=== PATIENT | male | born 1960 | race Caucasian/White ===

== ENCOUNTER 2017-09-03 08:53 | Inpatient (IN) | payer BC ==
[2017-08-13 14:53] VITALS: BMI 53.0
--- NOTE | 2017-08-22 13:51 | PAT Medication Instructions ---
Service Date Aug 22, 2017. Current Home Medication List Fluticasone Propionate (Inhala (Flovent Diskus), 1 PUFFS INH BID PRN for Shortness of Breath Fluticasone Propionate (Nasal) (Flonase Allergy Relief), 2 SPRAYS NA QAM Lisinopril (Zestril), 2.5 MG PO QAM Metformin Hcl Er (Glucophage Er), 500 MG PO QAM Multiple Vitamins W/ Minerals (Centrum Silver 50+Men), 1 TAB PO QAM Sertraline (Zoloft), 100 MG PO QAM Medication Instructions For Your Scheduled Surgery - Hold the following medications the morning of surgery: Lisinopril (Zestril), 2.5 MG PO QAM Metformin Hcl Er (Glucophage Er), 500 MG PO QAM Multiple Vitamins W/ Minerals (Centrum Silver 50+Men), 1 TAB PO QAM - Take the following medications the morning of surgery with a sip of water: Sertraline (Zoloft), 100 MG PO QAM Fluticasone Propionate (Inhala (Flovent Diskus), 1 PUFFS INH BID PRN for Shortness of Breath (if needed) Fluticasone Propionate (Nasal) (Flonase Allergy Relief), 2 SPRAYS NA QAM - Take the following medications as scheduled the night before surgery: Fluticasone Propionate (Inhala (Flovent Diskus), 1 PUFFS INH BID PRN for Shortness of Breath (if needed) If you have any questions please call us at [phone] or [phone] or [phone]
--- NOTE | 2017-08-22 14:00 | HISTORY & PHYSICAL EXAMINATION ---
DATE OF ADMISSION: 09/03/2017 CHIEF COMPLAINT: Left knee pain. HISTORY OF PRESENT ILLNESS: Yaniv is a 57-year-old male with a 1-1/2 year history of left knee pain. The patient rates his pain at 8/10. He has pain with his daily activities. He has limited standing and walking tolerance. Pain is worse with weightbearing. The patient has had injections, anti-inflammatories over the years without relief. He has failed conservative treatment and is scheduled to proceed with elective left total knee arthroplasty. PAST MEDICAL HISTORY: Hypertension, morbid obesity. He denies heart disease, diabetes or DVT. PAST SURGICAL HISTORY: Bilateral lower extremity neuroma excision, left knee arthroscopy, ear tubes bilaterally and muscle repair at both elbows. SOCIAL HISTORY: The patient denies alcohol or tobacco use. He lives in a single story home. He lives alone and is retired. FAMILY HISTORY: Negative for DVT. MEDICATIONS: Zoloft 100 mg daily, metformin 500 mg, lisinopril 2.5 mg, fluticasone 50 mg. ALLERGIES: CIPRO CAUSES MAJOR ANXIETY. REVIEW OF SYSTEMS: See HPI. Ten other systems reviewed, all negative. PHYSICAL EXAMINATION: VITAL SIGNS: Height 5 foot 4 inches, weight 310 pounds, BMI 53. GENERAL: This is a well-developed, well-nourished, obese male who is alert and oriented x3. Mood and affect are appropriate. HEENT: Normocephalic, atraumatic. Mucous membranes are moist and intact. NECK: Supple without lymphadenopathy. HEART: Regular rate and rhythm without murmurs, rubs or gallops. LUNGS: Clear to auscultation without wheezes or rhonchi. ABDOMEN: Soft and nontender. Bowel sounds are equal and active. EXTREMITIES: No ecchymosis, redness or warmth. He has varus deformity. Range of motion is from 0-115 degrees with +1 laxity. He is neurovascularly intact with +5/5 strength. X-RAY EXAM: AP and lateral views show joint space narrowing and osteophyte formation. IMPRESSION: Degenerative joint disease, left knee. PLAN: The patient will be admitted for a left total knee arthroplasty. We will plan on aspirin for deep venous thrombosis prophylaxis. The patient would like to do outpatient physical therapy upon discharge.
--- NOTE | 2017-08-22 15:04 | DIAGNOSTIC IMAGING REPORT ---
CHEST 2 VIEWS ROUTINE CLINICAL HISTORY: Preoperative evaluation. COMPARISON STUDY: No previous studies for comparison. FINDINGS: Lung volumes are normal. No pneumothorax or pleural effusion is noted. There is no consolidation or evidence for pulmonary edema. Cardiac size is normal. Mediastinal contours are normal. IMPRESSION: No acute cardiopulmonary findings. Electronically signed by: Aniceto Manzanares M.D. 08/22/2017 3:03 PM Dictated Date/Time: 08/22/2017 2:51 PM
[2017-08-22 16:07] LABS: BASO % 0.6 %; BASO ABS # 0.08 K/uL (0-0.2); EOS % 5.5 %; EOS ABS # 0.68 K/uL (0-0.5); HEMATOCRIT 41.1 % (42-52); HEMOGLOBIN 13.7 g/dL (14.0-18.0); IG# 0.05 K/uL (0.00-0.02); LYMPH % 33.7 %; LYMPH ABS # 4.17 K/uL (1.2-3.4); MEAN CELL VOLUME 88.2 fL (80-100); MEAN CORPUSCULAR HEMOGLOBIN 29.4 pg (25-34); MEAN CORPUSCULAR HGB CONC 33.3 g/dl (32-36); MEAN PLATELET VOLUME 10.5 fL (7.4-10.4); MONO % 9.2 %; MONO ABS # 1.14 K/uL (0.11-0.59); NEUT % 50.6 %; NEUT ABS # 6.24 K/uL (1.4-6.5); PLATELET COUNT 242 K/uL (130-400); RED CELL DISTRIBUTION WIDTH CV 13.9 % (11.5-14.5); RED CELL DISTRIBUTION WIDTH SD 44.8 fL (36.4-46.3); WHITE BLOOD COUNT 12.36 K/uL (4.8-10.8)
[2017-09-03] VITALS (11 sets, daily range): BP systolic 93–165; BP diastolic 58–96; PULSE 73–106; TEMP 36.5–36.9; O2SAT 93–97; Ht 162.6 cm; Wt 140.9 kg
[~2017-09-03] VITALS: Ht 162.6 cm; Wt 140.9 kg
[~2017-09-03 08:53] MED LIST: ACETAMINOPHEN 500 MG TAB PO SCH; BUPIVACAINE 0.5 % 5 MG/1 ML PF 10ML VIAL ONE; CEFAZOLIN 3000MG IV PUSH 22.5 ML IV SCH; CeleBREX 200 MG CAP PO SCH; FLUT0.15; FLUT1AER5 INH; GABAPENTIN 600 MG PO SCH; LACTATED RINGER'S 1000ML 1,000 ML IV SCH; LACTATED RINGER'S 1000ML 500 ML IV SCH; LISI-789 PO; METF500T5 PO; MULT-1093 PO; ROPIVACAINE 0.5% 5 MG/ML 30 ML VIAL ONE; ROPIVACAINE 5MG/ML 30 ML 150 MG, BUPIVACAINE 0.5% MPF INJ 30 ML, EpINEphrine HCL INJ 0.... INFIL SCH; SERT-234 PO
--- NOTE | 2017-09-03 09:47 | History & Physical Bridge Note ---
H&P Re-Evaluation Bridge Note: I have examined the patient, reviewed the History & Physical and in the interval since the performance of the History & Physical I have noted the following changes of clinical significance: No changes noted
[2017-09-03] MEDS ORDERED: MIDAZOLAM HCL 1 MG/ML 2ML VIAL ONE ×3 (09:51→11:25)
[2017-09-03] MEDS ORDERED: POVIDONE-IODINE OP SOLN 30 ML BTL ONE (10:44)
[2017-09-03] MEDS ORDERED: BACITRACIN 50000 UNIT VIAL ONE (10:44)
[2017-09-03] MEDS ORDERED: ORTHO JOINT ANESTHETIC ONE (10:44)
[2017-09-03] MEDS: TRANEXAMIC ACID INJ 1,000 MG x 2 Bags IV SCH ×4 (10:48→14:31)
[2017-09-03] MEDS ORDERED: PROPOFOL IV EMULSION 10 MG/ML 20 ML VIAL ONE ×3 (11:38→12:15)
[2017-09-03] MEDS ORDERED: LIDOCAINE HCL 2% 2 ML VIAL (20MG/ML) ONE (11:38)
[2017-09-03] MEDS ORDERED: GLYCOPYRROLATE INJ 0.2 MG/ML VIAL ONE (11:51)
[2017-09-03] MEDS ORDERED: PHENYLEPHRINE 100MCG/ML 5ML SYR ONE (11:58)
[2017-09-03] MEDS ORDERED: PHENYLEPHRINE HCL INJ 10 MG/ML VIAL ONE (11:58)
[2017-09-03] MEDS ORDERED: EpHEDrine SULFATE 50MG/5ML SYR ONE (11:58)
--- NOTE | 2017-09-03 12:20 | [facility] Post Operative Brief Note ---
Immediate Operative Summary Operative Date Sep 03, 2017. Pre-Operative Diagnosis Left knee degenerative joint disease Post-Operative Diagnosis Left knee degenerative joint disease Procedure(s) Performed Utilizing [employer] non-block journey to total knee arthroplasty size 5 femur 4 tibia 9 Emy 32 oval patella left Total Knee Arthroplasty Surgeon Dr. Maximo Dukes Broadcast Director Operations Surgeon(s) Maximo Estrada PA-C Estimated Blood Loss 5mL Findings Consistent with Post-Op Diagnosis Specimens A: left knee bone & tissue Anesthesia Type MAC Spinal Regional Complication(s) none Disposition Disposition: Recovery Room / PACU Overlapping Procedure I was present for: the critical portions of procedure. I was immediately available: during the entire case Back up surgeon: was not required during procedure
--- NOTE | 2017-09-03 12:22 | [facility] Operative Report ---
Operative Report Operative Date Sep 03, 2017. Pre-Operative Diagnosis Left knee degenerative joint disease Post-Operative Diagnosis Left knee degenerative joint disease Procedure(s) Performed Utilizing [employer]NOW non-block journey to total knee arthroplasty size 5 femur 4 tibia 9 Emy 32 oval patella left Total Knee Arthroplasty Surgeon Dr. Maximo Dukes Rust Proofer Surgeon(s) Maximo Estrada PA-C Estimated Blood Loss 5mL Findings Patient was noted to have a severe end-stage DJD with findings consistent with eburnated bone medial compartment subchondral sclerosis marginal osteophytes cystic changes moderate to large effusion patellofemoral DJD with crepitation or pseudo-ligamentous laxity of both medial compartment from medial compartment articular cartilage and meniscal wear the clinical findings time surgery were consistent with radiographic findings patellofemoral narrow joint space osteophytes sclerosis and marginal osteophytes. Specimens A: left knee bone & tissue Anesthesia Type MAC Spinal Regional Complication(s) none Disposition Recovery Room / PACU Indications Patient presents for total knee arthroplasty after failing attempts at conservative management including corticosteroid injections viscous supplementations bracing activity modification attempted weight loss patient is a failed all attempts at conservative management presents for total knee arthroplasty the above findings were noted at the time of surgery including subchondral sclerosis cystic changes marginal osteophytes Description of Procedure After proper prepping and draping of the left lower extremity anterior midline incision was made over the region of the extensor extensor mechanism after meticulous hemostasis was obtained and maintained in subcutaneous tissues a medial parapatellar incision was made The patella was subluxed lateralward the medial lateral gutter were cleaned from any hypertrophic synovitis and scar tissue of the distal femoral block was placed and the distal femoral osteotomy cut was made subsequently the chamfers anterior and posterior osteotomy cuts were made utilizing the 4-in-1 block the tibia was subsequently subluxed anteriorward medial and ateral meniscal remnants were excised in their entirety remnants of the anterior and posterior cruciate ligaments were excised in their entirety excellent exposure of the proximal tibia was obtained the tibial osteotomy guide was placed on the proximal tibial osteotomy cut was made once again the knee was irrigated with copious amounts of sterile saline solution the patella was subsequently everted lateralward thickened scar tissue around the patella was removed the patella was subsequently cut utilizing a freehand technique and was drilled prepared for final preparation and placement of patella socially flexion-extension gaps were checked and the equal and symmetric trials were placed to the appropriate femoral and tibial trials with poly-spacer being placed for equal flexion and extension gaps and full range of motion including extension to 0 and flexion to 140 the trial components after having been taken to recovery range of motion was subsequently removed meticulous hemostasis was obtained and maintained subsequently a knee block injection of joint cocktail including ropivacaine 0.5% 150 mg. Bupivacaine 0.5 % epinephrine 1-200,030 mL's toradol 30 mg dexamethasone 4 mg ketamine 10 mg clonidine 100 micrograms normal saline solution 30 mg was infiltrated into the soft tissues of the posterior knee medial lateral gutters and periosteal synovium special attention was paid to protect neurovascular structures at all times subsequently trial components having been removed the knee was irrigated with sterile saline solution. debris was removed the proximal tibia was subsequently prepared and was made ready for the placement of the tibial component tibial component was also cemented and tamped into position the femoral component was subsequently placed and cemented in the position the patellar component was subsequently cemented in position because hemostasis once again obtained and maintained wound having been thoroughly irrigated with debridement and debridement lavage was performed as well as a medial parapatellar incision closed with #1 Vicryl in interrupted fashion subcutaneous was closed with #2 Vicryl skin was closed with skin clips. PA-C was necessary for prepping and drapping as well as wound closure of deep fascia Sub cutaneous tissue and skin and was necessary for the case. A sterile compressive dressing was placed patient was taken to recovery in stable condition of report dictated by Ernst I attest to the content of the Intraoperative Record and any orders documented therein. Any exceptions are noted below. I attest to the content of the Intraoperative Record and any orders documented therein. Any exceptions are noted below.
[2017-09-03] MEDS ORDERED: ALUMINUM/MAGNESIUM/SIMETH (MAALOX MAX) 30 ML UDC PO PRN (13:15)
[2017-09-03] MEDS ORDERED: ONDANSETRON INJ 2 MG/ML 2 ML VIAL IV PRN (13:15)
[2017-09-03] MEDS ORDERED: MAGNESIUM HYDROXIDE SUSP 30 ML UDC PO PRN (13:15)
[2017-09-03] MEDS ORDERED: BISACODYL 10 MG SUPP PR PRN (13:15)
[2017-09-03] MEDS ORDERED: TAMSULOSIN HCL 0.4 MG CAP PO PRN (13:15)
[2017-09-03] MEDS ORDERED: MoRPHine SULFATE 4 MG/ML 1 ML CARP\\VIAL IV PRN (13:15)
--- NOTE | 2017-09-03 13:52 | DIAGNOSTIC IMAGING REPORT ---
LEFT KNEE 2 VIEWS History: Left total knee arthroplasty. Degenerative arthritis. Postop. FINDINGS: The patient is status post a left total knee arthroplasty. The hardware is intact. No fracture or dislocation. Surgical drains are in place. IMPRESSION: Left total knee arthroplasty. No evidence for hardware complication. Electronically signed by: Bartolo Mckinney M.D. 09/03/2017 1:50 PM Dictated Date/Time: 09/03/2017 1:50 PM
[2017-09-03] MEDS ORDERED: PHARMACY GLYCEMIC MGMT CONSULT PRN (13:58)
--- NOTE | 2017-09-03 13:58 | Pharmacy Progress Note ---
Glycemic Control Intl Consult Date of Service Sep 03, 2017. Scope Glycemic Pharmacist consulted for glycemic control and to write orders per [facility] inpatient glycemic control protocol Objective Weight (Kilograms): 140.91 Accuchecks BSG (last 24hrs): Test 09/03/17 09:12 09/03/17 13:13 Bedside Glucose 166 mg/dl (70-99) 115 mg/dl (70-99) Recent Pertinent Medications Outpatient Anti-diabetic Regimen: * Metformin ER 500mg PO Daily Risk Factors for Insulin Resistance: * Steroids: {orthomix} * Recent Surgery * Diet Assessment & Plan ASSESSMENT: * 57yo T2DM male with unknown degree of outpatient glycemic control. Will order A1c per protocol * Pt is maintained on oral antidiabetic agents as an outpatient * Oral agents are not recommended for inpatient use d/t drug interactions, changing PO intake, and difficulty titrating for acute hyper/hypoglycemia. ADA recommends re-initiating outpatient oral agents 1-2 days prior to discharge if/ when appropriate if they were held on admission. * Will hold oral agents for admission and utilize SQ basal bolus insulin regimen which is the recommended regimen for inpatient glycemic control. * Will initiate weight based insulin dosing for insulin nahid patient and titrate based on BSG trends. * Will dose basal insulin based on a BSG scale as degree of outpatient control/ insulin resistance unknown * Goal is to maintain BSGs <200 mg/dl (ideally <150 mg/dl) to prevent post-op infectious complications PLAN FOR INPATIENT GLYCEMIC CONTROL: * Holding outpatient oral diabetes medications * Will resume POD#1 as long as pt tolerating PO and renal function WNL * Basal insulin * Lantus 13-35 units SQ BID - dose based on BSG * If BSG below 140mg/dl --> 13 units (~0.1 units/kg) * BSG 140-180mg/dl --> 24 units (~0.2 units/kg) * BSG above 180mg/dl --> 35 units (~0.25units/kg) * Bolus insulin * NovoLog per scale ACHS or Q6hrs while NPO * Goal Range: Low 110 mg/dL - High 140 mg/dL * Correction Factor: 15 mg/dL/unit * Nutritional / Prandial insulin per carb ratio of 1 unit per 6 grams CHO consumed * A1c with AM labs * Please note that the plan above was derived based on current level of insulin resistance and hospital stress. These recommendations are appropriate for inpatient admission only. Plan of care upon discharge will need to be reassessed to avoid potential outpatient hypo/hyperglycemia. Thank you.
[2017-09-03] MEDS ORDERED: CARBOHYDRATES FOR HYPOGLYCEMIA PO PRN (14:15)
[2017-09-03] MEDS ORDERED: GLUCOSE 40% GEL 15 GM TUBE PO PRN (14:15)
[2017-09-03] MEDS ORDERED: GLUCAGON FOR INJ 1 MG VIAL IM PRN (14:15)
[2017-09-03] MEDS ORDERED: DEXTROSE 50% 50 ML SYR IV PRN (14:15)
[2017-09-03] MEDS ORDERED: GLUCOSE 10 TABS/TUBE PO PRN (14:15)
[2017-09-03] MEDS: SODIUM CHLORIDE 0.9% 1000ML 1,000 ML IV SCH (14:32)
--- NOTE | 2017-09-03 14:42 | Anesthesiology Progress Note ---
Anesthesia Post Op Note Date & Time Sep 03, 2017 at 14:42 Vital Signs Pain Intensity: 0 Vital Signs Past 12 Hours Date Time Temp Pulse Resp B/P (MAP) Pulse Ox O2 Delivery O2 Flow Rate FiO2 09/03/17 14:20 36.5 80 18 113/58 (76) 96 Nasal Cannula 2.0 09/03/17 13:51 36.9 84 18 125/73 (90) 96 Nasal Cannula 3.0 09/03/17 13:50 97 Nasal Cannula 3.0 09/03/17 13:50 97 Nasal Cannula 2.0 09/03/17 13:40 37.3 78 18 117/75 98 Nasal Cannula 3 09/03/17 13:30 82 16 126/69 100 Nasal Cannula 3 09/03/17 13:20 86 16 116/67 100 Nasal Cannula 3 09/03/17 13:07 36.4 87 16 119/64 100 Oxymask 10 09/03/17 09:15 36.8 79 18 165/96 96 Room Air Notes Mental Status: alert / awake / arousable, participated in evaluation Pt Amnestic to Procedure: Yes Nausea / Vomiting: adequately controlled Pain: adequately controlled Airway Patency, RR, SpO2: stable & adequate BP & HR: stable & adequate Hydration State: stable & adequate Neuraxial Anesthesia: was administered, sensory block is resolving Anesthetic Complications: no major complications apparent
[2017-09-03] MEDS: ACETAMINOPHEN 500 MG TAB PO SCH ×2 (16:14→21:33)
[2017-09-03] MEDS: FERROUS GLUCONATE 324 MG TAB PO SCH (17:48)
[2017-09-03] MEDS: INSULIN ASPART 100 UNITS/ML 3 ML PEN SC SCH ×2 (18:31→21:45)
[2017-09-03] MEDS: INSULIN GLARGINE SOLOSTAR 100 UNITS/ML 3 ML PEN SC SCH (18:32)
[2017-09-03] MEDS: CeleBREX 200 MG CAP PO SCH (21:32)
[2017-09-03] MEDS: CEFAZOLIN IV 2,000 MG in SYRINGE 0 ML IV SCH (21:32)
[2017-09-03] MEDS: ASPIRIN 81 MG ECTAB PO SCH (21:32)
[2017-09-03] MEDS: SENNA 8.6 MG TAB PO SCH (21:32)
[2017-09-03] MEDS: DOCUSATE SODIUM 100 MG CAP PO SCH (21:33)
[2017-09-03] MEDS: TRAMADOL HCL 50 MG TAB PO PRN (23:57)
[2017-09-04] MEDS: SODIUM CHLORIDE 0.9% 1000ML 1,000 ML IV SCH ×2 (01:48→09:07)
[2017-09-04 03:45] VITALS: BP 136/74; PULSE 72; TEMP 36.4; O2SAT 96
[2017-09-04] MEDS: CEFAZOLIN IV 2,000 MG in SYRINGE 0 ML IV SCH (04:35)
[2017-09-04] MEDS: ACETAMINOPHEN 500 MG TAB PO SCH ×3 (06:23→21:39)
[2017-09-04] MEDS: TRAMADOL HCL 50 MG TAB PO PRN ×2 (06:26→23:06)
[2017-09-04 06:44] LABS: HEMOGLOBIN 12.6 g/dL (14.0-18.0); MEAN CELL VOLUME 87.9 fL (80-100); MEAN CORPUSCULAR HEMOGLOBIN 29.9 pg (25-34); MEAN CORPUSCULAR HGB CONC 34.1 g/dl (32-36); MEAN PLATELET VOLUME 9.7 fL (7.4-10.4); PLATELET COUNT 178 K/uL (130-400); RED CELL DISTRIBUTION WIDTH CV 13.7 % (11.5-14.5); RED CELL DISTRIBUTION WIDTH SD 43.9 fL (36.4-46.3); WHITE BLOOD COUNT 13.88 K/uL (4.8-10.8)
[2017-09-04 06:58] LABS: HEMOGLOBIN A1C 7.3 % (4.5-5.6)
[2017-09-04 07:11] LABS: CALCIUM 8.6 mg/dl (8.5-10.1); CREATININE 1.21 mg/dl (0.60-1.40); POTASSIUM 4.3 mmol/L (3.5-5.1)
--- NOTE | 2017-09-04 08:01 | Orthopedic Progress Note ---
Orthopedic Progress Note Date of Service Sep 04, 2017. Subjective Post OP Day: 1 Reports: feeling well, Denies: complaints Objective calves soft nontender, N/V intact, dressing C/D/I, A&O x3, toes mobile, hemovac drainage (200ml latest shift) Date Time Temp Pulse Resp B/P (MAP) Pulse Ox O2 Delivery O2 Flow Rate FiO2 09/04/17 03:45 36.4 72 16 136/74 (94) 96 Nasal Cannula 2.0 09/03/17 23:50 93 Room Air 2.0 09/03/17 23:22 36.9 87 17 108/70 (83) 93 Room Air 09/03/17 19:45 36.6 93 16 109/70 (83) 95 Nasal Cannula 2.0 09/03/17 16:49 76 18 115/73 (87) 94 Nasal Cannula 2.0 09/03/17 16:00 96 Nasal Cannula 2.0 09/03/17 15:50 106 20 106/76 (86) 96 Nasal Cannula 2.0 09/03/17 14:50 36.5 73 18 93/63 (73) 94 Nasal Cannula 2.0 09/03/17 14:20 36.5 80 18 113/58 (76) 96 Nasal Cannula 2.0 09/03/17 13:51 36.9 84 18 125/73 (90) 96 Nasal Cannula 3.0 09/03/17 13:50 97 Nasal Cannula 3.0 09/03/17 13:50 97 Nasal Cannula 2.0 09/03/17 13:40 37.3 78 18 117/75 98 Nasal Cannula 3 09/03/17 13:30 82 16 126/69 100 Nasal Cannula 3 09/03/17 13:20 86 16 116/67 100 Nasal Cannula 3 09/03/17 13:07 36.4 87 16 119/64 100 Oxymask 10 09/03/17 09:15 36.8 79 18 165/96 96 Room Air Laboratory Results 24 Hours: Test 09/04/17 06:17 Hematocrit 37.0 % Hemoglobin 12.6 g/dL Assessment & Plan Assessment: POD 1 s/p Left TKA Plan: PT/OT Planning for OPPT upon dc Inhouse Planning Pain Management: Celebrex, Ultram, Morphine, PO Tylenol, Oxy IR DVT Prophylaxis: TEDs, SCDs, ASA Discharge Planning Discharge Planning: home with oppt
[2017-09-04 08:02] VITALS: BP 146/76; PULSE 78; TEMP 36.5; O2SAT 95
[2017-09-04] MEDS: CeleBREX 200 MG CAP PO SCH ×2 (08:49→20:39)
[2017-09-04] MEDS: DOCUSATE SODIUM 100 MG CAP PO SCH ×2 (08:50→20:39)
[2017-09-04] MEDS: LISINOPRIL 2.5 MG TAB PO SCH (08:50)
[2017-09-04] MEDS: FLUTICASONE PROPIONATE NA SPR 16 GM BTL SCH (08:50)
[2017-09-04] MEDS: FERROUS GLUCONATE 324 MG TAB PO SCH ×3 (08:51→17:58)
[2017-09-04] MEDS: MULTIVITAMIN TAB PO SCH (08:51)
[2017-09-04] MEDS: SERTRALINE HCL 100 MG TAB PO SCH (08:51)
[2017-09-04] MEDS: ASPIRIN 81 MG ECTAB PO SCH ×2 (08:51→20:39)
[2017-09-04] MEDS: INSULIN ASPART 100 UNITS/ML 3 ML PEN SC SCH ×4 (08:55→20:44)
[2017-09-04] MEDS: INSULIN GLARGINE SOLOSTAR 100 UNITS/ML 3 ML PEN SC SCH ×2 (08:56→20:45)
[2017-09-04 10:32] VITALS: BP 129/73; PULSE 85; TEMP 36.6; O2SAT 94
--- NOTE | 2017-09-04 10:52 | Pharmacy Progress Note ---
Pharmacy Glycemic Short Note 2 Date of Service Sep 04, 2017. OUTPATIENT ANTIDIABETIC REGIMEN: * Metformin ER 500mg PO QAM * A1c = 7.3% on 09/04/17 Item Value Date Time Bedside Glucose 166 mg/dl H 09/03/17 0912 Bedside Glucose 115 mg/dl H 09/03/17 1313 Bedside Glucose 179 mg/dl H 09/03/17 1605 Bedside Glucose 201 mg/dl H 09/03/17 1732 Bedside Glucose 225 mg/dl H 09/03/17 2055 Random Glucose 198 mg/dl H 09/04/17 0617 ASSESSMENT: * Pt is currently receiving: * Lantus 35 units SQ BID * NovoLog per scale with goal range: 110-140mg/dl; CF = 10, CR = 4 * Pt with hyperglycemia post-operatively secondary to stress from surgery and orthomix (contains dexamethasone). * Pt is currently receiving weight/stress of 3 insulin dosing but BSGs slightly elevated. * Expect BSGs to improve as DXM wears off from orthomix - although this may last for days post-operatively. * Will resume metformin - pt tolerating PO and renal function WNL. * Will continue to titrate SQ basal bolus insulin regimen based on BSG trends. PLAN FOR INPATIENT GLYCEMIC CONTROL: * Resume outpatient oral diabetes medications * Metformin ER 500mg PO Daily * Basal insulin * Lantus 13-35 units SQ BID - dose based on BSG; start to taper this evening by increasing BSG threshold ranges for insulin to be given * If BSG below 150mg/dl --> 0 units * BSG 150-200mg/dl --> 13 units (~0.1 units/kg) * BSG above 201mg/dl --> 24 units (~0.2 units/kg) * Bolus insulin * NovoLog per scale ACHS or Q6hrs while NPO * Goal Range: Low 110 mg/dL - High 140 mg/dL * Correction Factor: 10 mg/dL/unit * Nutritional / Prandial insulin per carb ratio of 1 unit per 4 grams CHO consumed
[2017-09-04] MEDS ORDERED: METFORMIN HCL 500 MG TABCR PO ONE (12:00)
--- NOTE | 2017-09-04 13:53 | Discharge Instructions ---
Discharge Instructions Date of Service Sep 04, 2017. Admission Reason for Admission: Left Knee Osteoarthritis Discharge Discharge Diagnosis / Problem: left knee replacement Discharge Goals Goal(s): Decrease discomfort, Improve function, Increase independence Activity Recommendations Activity Limitations: as noted below Weightbearing Status: Left weightbearing (as tolerated) . Instructions / Follow-Up Instructions / Follow-Up ACTIVITY RECOMMENDATIONS: SELF CARE INSTRUCTIONS AFTER TOTAL KNEE REPLACEMENT A. You may need to continue a physical therapy program after discharge from the hospital. There are several options available to you. Your doctor will assist you in selecting the best one for you. 1. An out-patient facility 2 to 3 times a week for therapy or home therapy. 2. Continue working on all exercises taught to you in the hospital. Your goals should be to increase bending of your knee to 90 degrees and beyond and to fully straighten your knee. B. You may progress at your own pace from walking with a walker or crutches to a cane; then to no assistive devices. C. Make walking a part of your daily routine. Be up as much as comfortable with rest periods throughout the day. Rest with leg elevation is very important. Use the ice wrap frequently for the first 3-4 weeks. D. There are no restrictions on activities. You may ride in a car, shop, participate in button sewer hand and all social activities. E. Wear the long elastic stockings (NOAH hose) 20 hours a day for 2 weeks after surgery. They can be removed several times a day for laundering and for a bath. F. You may shower, no tub baths until cleared by your doctor. SPECIAL CARE INSTRUCTIONS: VERY IMPORTANT TO READ AND REVIEW A. There are a few signs you need to watch for after you are home. Call [facility] if you notice any of the followin. Increased severe knee pain. Some pain is expected especially when you exercise. 2. Increased swelling in your leg or knee; pain or swelling of the calf muscle in either lower leg. 3. Any fluid drainage from the incision. 4. Shortness of breath or chest pain. B. Please call [facility] at if you have any concerns or questions about your operation or recovery. The doctor or his nurse will return your call promptly. C. You must take antibiotics before dental work, bladder, bowel or other surgery. Your doctor will provide you with a permanent care to carry describing this precaution. IMPORTANT: * REMEMBER TO TAKE ASPIRIN, 81 MG, TWICE DAILY FOR 4 WEEKS UNLESS OTHERWISE DIRECTED. THIS IS YOUR BLOOD THINNER. * HIGH RISK PATIENTS MAY BE PRESCRIBED A STRONGER BLOOD THINNER. THIS WILL BE PROVIDED AT DISCHARGE. * CALL IF INCREASED PAIN, REDNESS, DRAINAGE OR FEVER GREATER THAT 101. * WEAR NOAH HOSE 20 HOURS PER DAY FOR 2 WEEKS. * DERMABOND Prineo- This is a mesh tape dressing that is covered with glue. It should remain in place until the incision is properly healed, usually 10-14 days. This dressing is designed to naturally slough off. You may trim the excess mesh tape as it peels off. Incision may be briefly wet in a shower. Dry immediately by blotting with a clean, dry towel. Do not bath or swim until instructed by your doctor. Do not scratch, rub, or pick at the dressing. Do not apply any topical ointments or lotions until dressing is completely removed and/or instructed by your doctor. There may be a small piece of suture material at one end of your incision. Do not pull or trim this. If it is bothersome or catching on clothing, you may cover it with a band-aid. FOLLOW UP VISIT: If appointment is not already scheduled: Please call [facility] to make a follow-up appointment for 2 weeks after your surgery at . Current Hospital Diet Patient's current hospital diet: Diabetes Type 2 Diet Discharge Diet Recommended Diet: Diabetes Type 2 Diet Procedures Procedures Performed: Utilizing [employer] non-block journey to total knee arthroplasty size 5 femur 4 tibia 9 Emy 32 oval patella left Total Knee Arthroplasty Pending Studies Studies pending at discharge: no Laboratory Results Hemoglobin A1c Test 09/04/17 06:17 Range/Units Estimated Average Glucose 163 mg/dl Hemoglobin A1c 7.3 H 4.5-5.6 % Medical Emergencies . Who to Call and When: Medical Emergencies: If at any time you feel your situation is an emergency, please call 911 immediately. . Non-Emergent Contact Non-Emergency issues call your: Primary Care Provider, Surgeon . "Provider Documentation" section prepared by Yaniv Case. . [place] Drug Monitoring Program Search Results: patient reviewed within database, no issues identified
[2017-09-04 15:02] VITALS: BP 117/72; PULSE 78; TEMP 37; O2SAT 94
[2017-09-04] MEDS: OXYCODONE HCL IR 5 MG TAB (IMMEDIATE RELEASE) PO PRN ×2 (15:12→20:30)
[2017-09-04] MEDS: SENNA 8.6 MG TAB PO SCH (20:39)
[2017-09-04 23:04] VITALS: BP 148/80; PULSE 81; TEMP 36.6; O2SAT 93
[2017-09-05] MEDS: OXYCODONE HCL IR 5 MG TAB (IMMEDIATE RELEASE) PO PRN ×4 (00:46→19:55)
[2017-09-05] MEDS: ACETAMINOPHEN 500 MG TAB PO SCH ×3 (05:58→22:39)
[2017-09-05 06:47] VITALS: BP 137/80; PULSE 75; TEMP 36.6; O2SAT 93
--- NOTE | 2017-09-05 07:24 | Orthopedic Progress Note ---
Orthopedic Progress Note Date of Service Sep 05, 2017. Subjective Post OP Day: 2 Reports: feeling well, pain controlled w PO medications, Denies: complaints, chest pain, SOB, nausea / vomiting, light headedness, calf pain Objective calves soft nontender, N/V intact, capillary refill less than 2 sec., incision C /D/I, A&O x3, toes mobile Date Time Temp Pulse Resp B/P (MAP) Pulse Ox O2 Delivery O2 Flow Rate FiO2 09/05/17 06:47 36.6 75 16 137/80 (99) 93 Room Air 09/04/17 23:22 Room Air 09/04/17 23:04 36.6 81 16 148/80 (102) 93 Room Air 09/04/17 16:20 Room Air 09/04/17 15:02 37.0 78 16 117/72 (87) 94 Room Air 09/04/17 10:32 36.6 85 16 129/73 (91) 94 Room Air 09/04/17 08:02 36.5 78 18 146/76 (99) 95 Room Air 09/04/17 07:55 Room Air 09/04/17 07:40 Room Air Assessment & Plan Assessment: POD 2 s/p Left TKA pt/ot dvt proph with linus/scd/asa Plan: PT/OT patient would like to discuss possible HHPT, patient lives alone Inhouse Planning Pain Management: Celebrex, Ultram, Morphine, PO Tylenol, Oxy IR DVT Prophylaxis: TEDs, SCDs, ASA Discharge Planning Discharge Planning: home with home health, uncertain
[2017-09-05] MEDS: FLUTICASONE PROPIONATE NA SPR 16 GM BTL SCH (07:31)
[2017-09-05] MEDS: SERTRALINE HCL 100 MG TAB PO SCH (07:32)
[2017-09-05] MEDS: FERROUS GLUCONATE 324 MG TAB PO SCH ×3 (07:32→17:44)
[2017-09-05] MEDS: MULTIVITAMIN TAB PO SCH (07:32)
[2017-09-05] MEDS: CeleBREX 200 MG CAP PO SCH ×2 (07:32→20:56)
[2017-09-05] MEDS: LISINOPRIL 2.5 MG TAB PO SCH (07:33)
[2017-09-05] MEDS: ASPIRIN 81 MG ECTAB PO SCH ×2 (07:33→20:56)
[2017-09-05] MEDS: DOCUSATE SODIUM 100 MG CAP PO SCH ×2 (07:33→20:57)
[2017-09-05] MEDS: METFORMIN HCL 500 MG TABCR PO SCH (07:33)
[2017-09-05] MEDS: INSULIN GLARGINE SOLOSTAR 100 UNITS/ML 3 ML PEN SC SCH (07:40)
[2017-09-05] MEDS: INSULIN ASPART 100 UNITS/ML 3 ML PEN SC SCH ×4 (07:45→20:54)
--- NOTE | 2017-09-05 13:24 | Pharmacy Progress Note ---
Pharmacy Glycemic Short Note 2 Date of Service Sep 05, 2017. OUTPATIENT ANTIDIABETIC REGIMEN: * Metformin ER 500mg PO QAM * A1c = 7.3% on 09/04/17 Test 09/04/17 17:04 09/04/17 20:25 09/05/17 06:46 09/05/17 12:11 Bedside Glucose 130 mg/dl (70-99) 137 mg/dl (70-99) 128 mg/dl (70-99) 147 mg/dl (70-99) ASSESSMENT: * Blood sugars at goal, no Lantus required in past 24 hours, discontinue PLAN FOR INPATIENT GLYCEMIC CONTROL: * Metformin ER 500mg PO Daily * Basal insulin - Discontinue Lantus * Bolus insulin * NovoLog per scale ACHS or Q6hrs while NPO * Goal Range: Low 110 mg/dL - High 140 mg/dL * Correction Factor: 15 mg/dL/unit * Nutritional / Prandial insulin per carb ratio of 1 unit per 6 grams CHO consumed DISCHARGE RECOMMENDATIONS: * A1c above 7%, would recommend increasing, and titrating up to Metformin ER 1000mg PO BID
[2017-09-05 15:35] VITALS: BP 118/75; PULSE 80; TEMP 36.6; O2SAT 92
[2017-09-05] MEDS ORDERED: NURSING VERBAL MED ORDER ONE (18:00)
[2017-09-05] MEDS: SENNA 8.6 MG TAB PO SCH (20:57)
[2017-09-05 23:15] VITALS: BP 119/74; PULSE 79; TEMP 36.8; O2SAT 94
[2017-09-06] MEDS: OXYCODONE HCL IR 5 MG TAB (IMMEDIATE RELEASE) PO PRN ×5 (01:44→23:57)
[2017-09-06] MEDS: ACETAMINOPHEN 500 MG TAB PO SCH ×3 (06:28→21:14)
[2017-09-06 06:31] VITALS: BP 134/77; PULSE 76; TEMP 36.7; O2SAT 92
[2017-09-06] MEDS: FLUTICASONE PROPIONATE NA SPR 16 GM BTL SCH (07:27)
[2017-09-06] MEDS: DOCUSATE SODIUM 100 MG CAP PO SCH ×2 (07:28→21:13)
[2017-09-06] MEDS: METFORMIN HCL 500 MG TABCR PO SCH (07:28)
[2017-09-06] MEDS: CeleBREX 200 MG CAP PO SCH ×2 (07:28→21:13)
[2017-09-06] MEDS: SERTRALINE HCL 100 MG TAB PO SCH (07:29)
[2017-09-06] MEDS: FERROUS GLUCONATE 324 MG TAB PO SCH ×3 (07:29→17:44)
[2017-09-06] MEDS: LISINOPRIL 2.5 MG TAB PO SCH (07:29)
[2017-09-06] MEDS: ASPIRIN 81 MG ECTAB PO SCH ×2 (07:29→21:13)
[2017-09-06] MEDS: MULTIVITAMIN TAB PO SCH (07:37)
[2017-09-06] MEDS: INSULIN ASPART 100 UNITS/ML 3 ML PEN SC SCH ×5 (07:39→21:20)
--- NOTE | 2017-09-06 08:21 | Orthopedic Progress Note ---
Orthopedic Progress Note Date of Service Sep 06, 2017. Subjective Post OP Day: 3 Reports: feeling well, Denies: complaints Additional Notes: Discussed with patient about going home alone. He was a little confused about whether he was going to need SNF vs HH services to go home. I spoke to Simona Bell this AM from PT dept. She states patient was still unable to get OOB by himself. She is unsure if the patient should go home by himself. I spoke to CM about his case. She said that he has 4 siblings that were going to "help" him out at home but unsure if anyone was going to stay with him. She was going to look into this today and also see what his insurance might cover. With his ambulation being "ok" , he may not be approved for inpt rehab; possibly a SNF if pt's family cannot stay with him. Objective calves soft nontender, N/V intact, incision C/D/I, A&O x3, toes mobile Date Time Temp Pulse Resp B/P (MAP) Pulse Ox O2 Delivery O2 Flow Rate FiO2 09/06/17 06:31 36.7 76 17 134/77 (96) 92 Room Air 09/05/17 23:15 36.8 79 18 119/74 (89) 94 Room Air 09/05/17 19:30 Room Air 09/05/17 15:35 36.6 80 20 118/75 (89) 92 Room Air 09/05/17 15:20 Room Air Assessment & Plan Assessment: POD 3 s/p Left TKA pt/ot dvt proph with linus/scd/asa Plan: PT/OT After above noted discussion with PT and CM, we will see if patient will qualify for SNF or see if family can help at home. Inhouse Planning Pain Management: Celebrex, Ultram, Morphine, PO Tylenol, Oxy IR DVT Prophylaxis: TEDs, SCDs, ASA Discharge Planning Discharge Planning: uncertain
[2017-09-06] MEDS ORDERED: METFORMIN HCL 500 MG TABCR PO SCH (09:00)
--- NOTE | 2017-09-06 09:15 | Pharmacy Progress Note ---
Pharmacy Glycemic Short Note 2 Date of Service Sep 06, 2017. OUTPATIENT ANTIDIABETIC REGIMEN: * Metformin ER 500mg PO QAM * A1c = 7.3% on 09/04/17 ASSESSMENT: * Mr Ibarra is a 57 y/o M with a PMH of HTN, obesity, and type 2 diabetes who presents for a L TKA. The patient is POD 3. * The patient's blood sugars yesterday were [phone] mg/dL - fasting today is 129 m/dL. The patient received 28 units of correctional insulin. * Patient's fasting within goal range so do not add additional Lantus. Blood sugars trended downwards yesterday so loosened Novolog parameters. Continue metformin. PLAN FOR INPATIENT GLYCEMIC CONTROL: * Metformin ER 500mg PO Daily * Basal insulin - Discontinue Lantus * Bolus insulin -loosen * NovoLog per scale ACHS or Q6hrs while NPO * Goal Range: Low 110 mg/dL - High 140 mg/dL * Correction Factor: 20 mg/dL/unit * Nutritional / Prandial insulin per carb ratio of 1 unit per 8 grams CHO consumed DISCHARGE RECOMMENDATIONS: * A1c above 7%, would recommend increasing, and titrating up to Metformin ER 1000mg PO BID
[2017-09-06 14:56] VITALS: BP 130/71; PULSE 76; TEMP 36.5; O2SAT 92
[2017-09-06] MEDS: SENNA 8.6 MG TAB PO SCH (21:13)
[2017-09-06 23:15] VITALS: BP 106/66; PULSE 81; TEMP 36.9; O2SAT 94
[2017-09-06 23:40] VITALS: O2SAT 94
[2017-09-07] MEDS: ACETAMINOPHEN 500 MG TAB PO SCH ×3 (05:45→20:54)
[2017-09-07 06:37] VITALS: BP 131/76; PULSE 75; TEMP 36.8; O2SAT 92
[2017-09-07] MEDS: OXYCODONE HCL IR 5 MG TAB (IMMEDIATE RELEASE) PO PRN ×2 (07:36→20:37)
[2017-09-07] MEDS: FLUTICASONE PROPIONATE NA SPR 16 GM BTL SCH (08:18)
[2017-09-07] MEDS: LISINOPRIL 2.5 MG TAB PO SCH (08:19)
[2017-09-07] MEDS: MULTIVITAMIN TAB PO SCH (08:19)
[2017-09-07] MEDS: SERTRALINE HCL 100 MG TAB PO SCH (08:19)
[2017-09-07] MEDS: METFORMIN HCL 500 MG TABCR PO SCH (08:20)
[2017-09-07] MEDS: CeleBREX 200 MG CAP PO SCH ×2 (08:20→20:54)
[2017-09-07] MEDS: FERROUS GLUCONATE 324 MG TAB PO SCH ×3 (08:20→17:41)
[2017-09-07] MEDS: DOCUSATE SODIUM 100 MG CAP PO SCH ×2 (08:21→20:54)
[2017-09-07] MEDS: ASPIRIN 81 MG ECTAB PO SCH ×2 (08:21→20:54)
[2017-09-07] MEDS: INSULIN ASPART 100 UNITS/ML 3 ML PEN SC SCH ×4 (08:26→20:52)
--- NOTE | 2017-09-07 09:26 | Orthopedic Progress Note ---
Orthopedic Progress Note Date of Service Sep 07, 2017. Subjective Post OP Day: 4 Reports: feeling well, pain controlled w PO medications, Denies: chest pain, SOB , nausea / vomiting, light headedness, calf pain Objective calves soft nontender, N/V intact, capillary refill less than 2 sec., dressing C /D/I (prineo), A&O x3, toes mobile Date Time Temp Pulse Resp B/P (MAP) Pulse Ox O2 Delivery O2 Flow Rate FiO2 09/07/17 08:15 Room Air 09/07/17 06:37 36.8 75 18 131/76 (94) 92 Room Air 09/06/17 23:40 94 Room Air 2.0 09/06/17 23:15 36.9 81 18 106/66 (79) 94 Room Air 09/06/17 15:55 Room Air 09/06/17 14:56 36.5 76 18 130/71 (90) 92 Room Air Assessment & Plan Assessment: POD 4 s/p Left TKA pt/ot dvt proph with linus/scd/asa Plan: PT/OT improving with therapy but not enough to be able to go home on his own without assistance. Will continue to wait if can get approval for possibly SNF. Patient notes he is willing to go wherever if he can get approval. Inhouse Planning Pain Management: Celebrex, Ultram, Morphine, PO Tylenol, Oxy IR DVT Prophylaxis: TEDs, SCDs, ASA Discharge Planning Discharge Planning: uncertain
[2017-09-07 11:34] VITALS: BP 162/80; PULSE 68; O2SAT 97
[2017-09-07 15:47] VITALS: BP 125/72; PULSE 70; TEMP 36.7; O2SAT 91
[2017-09-07] MEDS: SENNA 8.6 MG TAB PO SCH (20:54)
[2017-09-07 23:10] VITALS: BP_SYST 114; BP_DIAS 1; BP_DIAS 71; PULSE 76; TEMP 36.7; O2SAT 93
[2017-09-08] MEDS: OXYCODONE HCL IR 5 MG TAB (IMMEDIATE RELEASE) PO PRN ×5 (01:17→20:13)
[2017-09-08] MEDS: ACETAMINOPHEN 500 MG TAB PO SCH ×3 (05:59→20:49)
[2017-09-08 07:42] VITALS: BP 130/77; PULSE 81; TEMP 36.5; O2SAT 99
--- NOTE | 2017-09-08 08:30 | Orthopedic Progress Note ---
Orthopedic Progress Note Date of Service Sep 08, 2017. Subjective Post OP Day: 5 Reports: feeling well, pain controlled w PO medications, Denies: chest pain, SOB , nausea / vomiting, light headedness, calf pain Objective calves soft nontender, N/V intact, capillary refill less than 2 sec., incision C /D/I, A&O x3, toes mobile Date Time Temp Pulse Resp B/P (MAP) Pulse Ox O2 Delivery O2 Flow Rate FiO2 09/08/17 07:42 36.5 81 20 130/77 (94) 99 Room Air 09/07/17 23:20 Room Air 09/07/17 23:10 36.7 76 20 114/71 (85) 93 Room Air 09/07/17 17:12 Room Air 09/07/17 15:47 36.7 70 18 125/72 (89) 91 Room Air 09/07/17 11:34 68 97 Assessment & Plan Assessment: POD 5 s/p Left TKA pt/ot dvt proph with linus/scd/asa Plan: PT/OT improving with therapy but not enough to be able to go home on his own without assistance. Will continue to wait if can get approval for possibly SNF. Patient notes he is willing to go wherever if he can get approval.Hopefully approval for saturday Inhouse Planning Pain Management: Celebrex, Ultram, Morphine, PO Tylenol, Oxy IR DVT Prophylaxis: TEDs, SCDs, ASA Discharge Planning Discharge Planning: uncertain
[2017-09-08] MEDS: SERTRALINE HCL 100 MG TAB PO SCH (08:55)
[2017-09-08] MEDS: MULTIVITAMIN TAB PO SCH ×2 (08:55→09:00)
[2017-09-08] MEDS: FLUTICASONE PROPIONATE NA SPR 16 GM BTL SCH (08:55)
[2017-09-08] MEDS: ASPIRIN 81 MG ECTAB PO SCH ×2 (08:56→20:47)
[2017-09-08] MEDS: METFORMIN HCL 500 MG TABCR PO SCH (08:56)
[2017-09-08] MEDS: FERROUS GLUCONATE 324 MG TAB PO SCH ×3 (08:56→17:49)
[2017-09-08] MEDS: DOCUSATE SODIUM 100 MG CAP PO SCH ×2 (08:56→20:46)
[2017-09-08] MEDS: CeleBREX 200 MG CAP PO SCH ×2 (08:57→20:48)
[2017-09-08] MEDS: LISINOPRIL 2.5 MG TAB PO SCH (08:57)
[2017-09-08] MEDS: INSULIN ASPART 100 UNITS/ML 3 ML PEN SC SCH ×4 (09:00→20:45)
[2017-09-08 09:53] VITALS: BP 148/82; PULSE 88; O2SAT 96
--- NOTE | 2017-09-08 13:47 | Pharmacy Progress Note ---
Pharmacy Glycemic Short Note 2 Date of Service Sep 08, 2017. OUTPATIENT ANTIDIABETIC REGIMEN: * Metformin ER 500mg PO QAM * A1c = 7.3% on 09/04/17 ASSESSMENT: * Mr Ibarra is a 57 y/o M with a PMH of HTN, obesity, and type 2 diabetes who presents for a L TKA. The patient is POD 5. * The patient's blood sugars yesterday were [phone] mg/dL - fasting today is 142 m/dL. The patient received 19 units of correctional insulin. * Patient's fasting within slightly above goal range; however, will evaluate if this is a trend before adding Lantus. If blood sugar continues above 140 mg/dL for fasting, then recommend Lantus 10 units and loosen Novolog parameters. Novolog trends blood sugars downwards to reasonable numbers. Continue metformin. PLAN FOR INPATIENT GLYCEMIC CONTROL: * Metformin ER 500mg PO Daily * Bolus insulin * NovoLog per scale ACHS or Q6hrs while NPO * Goal Range: Low 110 mg/dL - High 140 mg/dL * Correction Factor: 20 mg/dL/unit * Nutritional / Prandial insulin per carb ratio of 1 unit per 7 grams CHO consumed DISCHARGE RECOMMENDATIONS: * A1c above 7%, would recommend increasing, and titrating up to Metformin ER 1000mg PO BID
[2017-09-08 15:14] VITALS: BP 144/83; PULSE 71; TEMP 36.6; O2SAT 93
[2017-09-08] MEDS: SENNA 8.6 MG TAB PO SCH (20:47)
[2017-09-08 23:02] VITALS: BP 137/80; PULSE 72; TEMP 36.5; O2SAT 92
[2017-09-09] MEDS: OXYCODONE HCL IR 5 MG TAB (IMMEDIATE RELEASE) PO PRN ×5 (02:29→23:16)
[2017-09-09 06:25] VITALS: BP 133/74; PULSE 72; TEMP 36.5; O2SAT 91
[2017-09-09] MEDS: ACETAMINOPHEN 500 MG TAB PO SCH ×3 (06:29→21:22)
[2017-09-09] MEDS: FERROUS GLUCONATE 324 MG TAB PO SCH ×3 (07:27→18:21)
[2017-09-09] MEDS: MULTIVITAMIN TAB PO SCH (07:27)
[2017-09-09] MEDS: DOCUSATE SODIUM 100 MG CAP PO SCH ×2 (07:28→21:24)
[2017-09-09] MEDS: CeleBREX 200 MG CAP PO SCH ×2 (07:28→21:23)
[2017-09-09] MEDS: FLUTICASONE PROPIONATE NA SPR 16 GM BTL SCH (07:28)
[2017-09-09] MEDS: METFORMIN HCL 500 MG TABCR PO SCH ×3 (07:29→18:21)
[2017-09-09] MEDS: ASPIRIN 81 MG ECTAB PO SCH ×2 (07:29→21:23)
[2017-09-09] MEDS: SERTRALINE HCL 100 MG TAB PO SCH (07:30)
[2017-09-09 07:31] VITALS: BP 137/81; PULSE 86
[2017-09-09] MEDS: LISINOPRIL 2.5 MG TAB PO SCH (07:32)
[2017-09-09] MEDS: INSULIN ASPART 100 UNITS/ML 3 ML PEN SC SCH ×4 (07:36→21:00)
--- NOTE | 2017-09-09 08:23 | Pharmacy Progress Note ---
Pharmacy Glycemic Short Note 2 Date of Service Sep 09, 2017. OUTPATIENT ANTIDIABETIC REGIMEN: * Metformin ER 500mg PO QAM * A1c = 7.3% on 09/04/17 Item Value Date Time Bedside Glucose 142 mg/dl H 09/08/17 0758 Bedside Glucose 109 mg/dl H 09/08/17 1158 Bedside Glucose 115 mg/dl H 09/08/17 1711 Bedside Glucose 114 mg/dl H 09/08/174 Bedside Glucose 118 mg/dl H 09/09/17 0641 ASSESSMENT: * Mr Ibarra is a 57 y/o M with a PMH of HTN, obesity, and type 2 diabetes who presents for a L TKA. The patient is POD 6 * BSGS over the past 24hrs are well controlled with outpatient metformin dosing + NovoLog prandial insulin. * Pt is requiring 23 units of prandial insulin in addition to outpatient metformin to achieve this level of control. * Recommend increasing metformin to BIDM for adequate outpatient control. * Goal is to maintain BSGs <200 mg/dl (ideally <150 mg/dl) to prevent post-op infectious complications PLAN FOR INPATIENT GLYCEMIC CONTROL: * INCREASE Metformin ER 500mg PO BIDM * Bolus insulin: loosen parameters this evening when BID metformin starts * NovoLog per scale ACHS or Q6hrs while NPO * Goal Range: Low 110 mg/dL - High 140 mg/dL * Correction Factor: 30 mg/dL/unit * Nutritional / Prandial insulin per carb ratio of 1 unit per 10 grams CHO consumed DISCHARGE RECOMMENDATIONS: * A1c above 7%, recommend continuing increased dosing of Metformin ER 1000mg PO BIDM at discharge for improved outpatient glycemic control.
--- NOTE | 2017-09-09 08:51 | Orthopedic Progress Note ---
Orthopedic Progress Note Date of Service Sep 09, 2017. Subjective Post OP Day: 6 Reports: feeling well, Denies: complaints Objective calves soft nontender, N/V intact, incision C/D/I, A&O x3, toes mobile Date Time Temp Pulse Resp B/P (MAP) Pulse Ox O2 Delivery O2 Flow Rate FiO2 09/09/17 07:31 86 137/81 (99) 09/09/17 07:05 Room Air 09/09/17 06:25 36.5 72 17 133/74 (93) 91 Room Air 09/08/17 23:02 36.5 72 17 137/80 (99) 92 Room Air 09/08/17 23:00 Room Air 09/08/17 15:39 Room Air 09/08/17 15:14 36.6 71 18 144/83 (103) 93 Room Air 71 09/08/17 09:53 88 96 09/08/17 09:00 Room Air Assessment & Plan Assessment: POD 6 s/p Left TKA pt/ot dvt proph with linus/scd/asa Plan: PT/OT improving with therapy but not enough to be able to go home on his own without assistance. Still requiring assistance to get OOB. Will continue to wait if can get approval for possibly SNF. Patient notes he is willing to go wherever if he can get approval.Hopefully approval for today. Inhouse Planning Pain Management: Celebrex, Ultram, Morphine, PO Tylenol, Oxy IR DVT Prophylaxis: TEDs, SCDs, ASA Discharge Planning Discharge Planning: uncertain
[2017-09-09 15:23] VITALS: BP 136/68; PULSE 68; TEMP 36.6; O2SAT 97
[2017-09-09] MEDS: SENNA 8.6 MG TAB PO SCH (21:23)
[2017-09-09 23:08] VITALS: BP 115/73; PULSE 73; TEMP 36.6; O2SAT 91
[2017-09-10] MEDS: ACETAMINOPHEN 500 MG TAB PO SCH ×2 (04:49→14:36)
[2017-09-10] MEDS: OXYCODONE HCL IR 5 MG TAB (IMMEDIATE RELEASE) PO PRN ×3 (04:50→15:48)
[2017-09-10 08:39] VITALS: BP 121/72; PULSE 68; TEMP 36.5; O2SAT 92
[2017-09-10] MEDS: FERROUS GLUCONATE 324 MG TAB PO SCH ×2 (08:46→12:41)
[2017-09-10] MEDS: METFORMIN HCL 500 MG TABCR PO SCH (08:46)
[2017-09-10] MEDS: CeleBREX 200 MG CAP PO SCH (08:47)
[2017-09-10] MEDS: FLUTICASONE PROPIONATE NA SPR 16 GM BTL SCH (08:47)
[2017-09-10] MEDS: DOCUSATE SODIUM 100 MG CAP PO SCH (08:47)
[2017-09-10] MEDS: SERTRALINE HCL 100 MG TAB PO SCH (08:48)
[2017-09-10] MEDS: MULTIVITAMIN TAB PO SCH (08:48)
[2017-09-10] MEDS: ASPIRIN 81 MG ECTAB PO SCH (08:48)
[2017-09-10] MEDS: LISINOPRIL 2.5 MG TAB PO SCH (08:49)
[2017-09-10] MEDS: INSULIN ASPART 100 UNITS/ML 3 ML PEN SC SCH ×2 (08:52→12:44)
--- NOTE | 2017-09-10 08:59 | Orthopedic Progress Note ---
Orthopedic Progress Note Date of Service Sep 10, 2017. Subjective Post OP Day: 7 Reports: feeling well, Denies: complaints Objective calves soft nontender, N/V intact, incision C/D/I, A&O x3, toes mobile Date Time Temp Pulse Resp B/P (MAP) Pulse Ox O2 Delivery O2 Flow Rate FiO2 09/10/17 08:39 36.5 68 18 121/72 (88) 92 Room Air 09/09/17 23:20 Room Air 09/09/17 23:08 36.6 73 18 115/73 (87) 91 Room Air 09/09/17 15:23 36.6 68 20 136/68 (90) 97 Room Air 68 09/09/17 13:50 Room Air Assessment & Plan Assessment: POD 7 s/p Left TKA Plan: PT/OT improving with therapy but not enough to be able to go home on his own without assistance. Still requiring assistance to get OOB. Will continue to wait if can get approval for possibly SNF. Patient notes he is willing to go wherever if he can get approval.Hopefully approval for today. If insurance denies, he will need to go home with home health services. Inhouse Planning Pain Management: Celebrex, Ultram, Morphine, PO Tylenol, Oxy IR DVT Prophylaxis: TEDs, SCDs, ASA Discharge Planning Discharge Planning: uncertain
[2017-09-10] MEDS ORDERED: ACET-24 PO (09:29)
[2017-09-10] MEDS ORDERED: ASPI-461 PO (09:29)
[2017-09-10] MEDS ORDERED: SENN-61 PO (09:29)
[2017-09-10] MEDS ORDERED: CLB200 PO (09:29)
[2017-09-10] MEDS ORDERED: RXC5 PO (09:29)
[2017-09-10 14:36] VITALS: BP 121/72; PULSE 68; TEMP 36.5; O2SAT 92
[2017-09-10 15:32] VITALS: BP 137/73; PULSE 76; TEMP 36.6; O2SAT 93
--- NOTE | 2017-09-16 12:28 | DISCHARGE SUMMARY ---
DISCHARGE DIAGNOSIS: Degenerative joint disease, left knee. SECONDARY DIAGNOSES: Hypertension, morbid obesity, diabetes mellitus type 2. CONSULTS: None. COMPLICATIONS: None. PROCEDURES: Left total knee arthroplasty performed by Dr. Dukes on 09/03/2017. BRIEF HISTORY: As dictated in the history and physical. HOSPITAL SUMMARY: The patient was admitted on the above-noted date and had the above-noted surgery performed which he tolerated well. On first postoperative day, he was feeling well and had no complaints. Calves were soft, nontender. Neurovascularly intact. Dressings were clean, dry, and intact. Toes were mobile. Vital signs were stable. He was afebrile and hemoglobin was 12.6. He was started on physical therapy protocol and continued on DVT prophylaxis and pain management. A consult was placed for glycemic control through pharmacy and they continued to follow the patient during his stay and manage insulin for his diabetes. By his second postoperative day, he was performing slowly in PT. It was discussed with the patient about going home and he was somewhat confused whether he is going home or going with home health versus going to a skilled facility. I have spoken to physical therapy that morning and she had stated that he was still unable to get out of bed by himself and was unsure if he can go home by himself. We included case management in this discussion and plans were to check with family to see if they are going to help him out. Case management is also going to check into skilled facilities that may accept him if he was unable to go home. Calves were soft, nontender. Neurovascularly intact. Incision was clean, dry and intact. Toes were mobile. Vital signs were stable. He was afebrile and he was continued on his PT protocol. This was by his third postoperative day. He remained stable over the weekend and by his 6th postoperative day, he was feeling well and had no complaints. Calves were soft and nontender. Neurovascularly intact. Incision was clean, dry, and intact. Toes were mobile. Vital signs were stable and plans were to wait to get approval for long term facility which did come by 09/10/2017. He was improving with the therapy and still requiring some assistance to get out of bed. He was approved for [facility] and it was felt that he would be transferred to [facility] on 09/10/2017. For further review, please see chart. LAB AND X-RAY DATA: As per chart. DISCHARGE INSTRUCTIONS: The patient was discharged to [facility] on 09/10/2017. DIET: Diabetic. ACTIVITY: Weightbearing as tolerated, left lower extremity. Follow TKA instruction sheets and special care instructions. The patient to have PT and OT protocols and to follow up with Dr. Dukes in 2 weeks from the day of surgery. Call for appointment if one has not been made for you. DISCHARGE MEDICATIONS: Acetaminophen 1000 mg p.o. q. 8 hours for 21 days, aspirin 81 mg p.o. b.i.d. for 30 days, Celebrex 200 mg p.o. b.i.d., oxycodone 5 mg p.o. q. 4-6 hours p.r.n. pain, Senokot 17.2 mg p.o. at bedtime. Resume home meds as listed.
== END 2017-09-10 17:10 | DRG 470 ==
LOC: C.ACU 08:53 → C.3E 09:52 → ENRESERV 13:26
PROVIDERS: ADMIT Orthopaedic Surgery; ATTEND Orthopaedic Surgery
PROC: 0SRD0J9 Replacement of Left Knee Joint with Synthetic Substitute, Cemented, Open Approach (ICD-10-PCS; principal; 2017-09-03 11:00)
DX: M17.12 Unilateral primary osteoarthritis, left knee (principal); Z68.43 Body mass index [BMI] 50.0-59.9, adult; I10 Essential (primary) hypertension; E11.9 Type 2 diabetes mellitus without complications; E66.01 Morbid (severe) obesity due to excess calories; Z79.899 Other long term (current) drug therapy; Z79.84 Long term (current) use of oral hypoglycemic drugs

== ENCOUNTER → 2017-09-12 | Outpatient (CLI) | payer BC ==
[~2017-09-12] MED LIST changes: +ACET-24 PO; -ACETAMINOPHEN 500 MG TAB PO SCH; +ASPI-461 PO; -BUPIVACAINE 0.5 % 5 MG/1 ML PF 10ML VIAL ONE; -CEFAZOLIN 3000MG IV PUSH 22.5 ML IV SCH; +CLB200 PO; -CeleBREX 200 MG CAP PO SCH; -FLUT1AER5 INH; -GABAPENTIN 600 MG PO SCH; -LACTATED RINGER'S 1000ML 1,000 ML IV SCH; -LACTATED RINGER'S 1000ML 500 ML IV SCH; -ROPIVACAINE 0.5% 5 MG/ML 30 ML VIAL ONE; -ROPIVACAINE 5MG/ML 30 ML 150 MG, BUPIVACAINE 0.5% MPF INJ 30 ML, EpINEphrine HCL INJ 0.... INFIL SCH; +RXC5 PO; +SENN-61 PO
[2017-09-12 09:10] LABS: BASO % 0.7 %; BASO ABS # 0.09 K/uL (0-0.2); EOS % 5.6 %; EOS ABS # 0.71 K/uL (0-0.5); HEMATOCRIT 36.1 % (42-52); IG# 0.15 K/uL (0.00-0.02); LYMPH % 29.5 %; LYMPH ABS # 3.71 K/uL (1.2-3.4); MEAN CELL VOLUME 89.1 fL (80-100); MEAN CORPUSCULAR HEMOGLOBIN 29.6 pg (25-34); MEAN CORPUSCULAR HGB CONC 33.2 g/dl (32-36); MEAN PLATELET VOLUME 9.1 fL (7.4-10.4); MONO ABS # 1.13 K/uL (0.11-0.59); NEUT ABS # 6.79 K/uL (1.4-6.5); PLATELET COUNT 280 K/uL (130-400); RED CELL DISTRIBUTION WIDTH CV 14.1 % (11.5-14.5); RED CELL DISTRIBUTION WIDTH SD 45.8 fL (36.4-46.3); WHITE BLOOD COUNT 12.58 K/uL (4.8-10.8)
[2017-09-12 09:19] LABS: BLOOD UREA NITROGEN 18 mg/dl (7-18); CALCIUM 9.4 mg/dl (8.5-10.1); CARBON DIOXIDE 27 mmol/L (21-32); GLUCOSE 128 mg/dl (70-99); POTASSIUM 4.2 mmol/L (3.5-5.1); SODIUM 138 mmol/L (136-145)
== END ==
LOC: C.LABCC 08:19
PROVIDERS: ATTEND Internal Medicine
DX: D64.9 Anemia, unspecified (principal); N28.9 Disorder of kidney and ureter, unspecified